=== PATIENT | female | born 1975 | race Caucasian/White ===

== ENCOUNTER 2018-01-10 00:57 | Observation (INO) | payer OTHER ==
[2018-01-09 11:55] LABS: PLATELET COUNT, AUTOMATED 360 K/uL (150-450)
[2018-01-10] VITALS (12 sets, daily range): BP systolic 106–131; BP diastolic 55–87
[~2018-01-10] VITALS: Ht 160 cm; Wt 57.2 kg
[~2018-01-10 00:57] MED LIST: AMLO2.5T74 PO; BUPR-126 PO; BUPR-472 PO; CELLC500PT PO; DICY10CA11 PO; DULO60CA56 PO; FOLI-68 PO; HYDR10CA3 PO; HYDR200T77 PO; LEVO-3 PO; MIDO5TAB20 PO; OXYC20TA99 PO; PREG75CA60 PO; PROM-110 PO; TIZA6CAP3 PO; TOPI-23 PO
[2018-01-10] MEDS ORDERED: PROPOFOL EMUL(*) 10MG/ML 20 ML 20 ML ONE ×2 (06:39→08:22)
[2018-01-10] MEDS ORDERED: DEXAMETHASONE SOD 4 MG/ML VIAL ONE (06:39)
[2018-01-10] MEDS ORDERED: SUGAMMADEX SOD 200 MG/2 ML SDV ONE (06:39)
[2018-01-10] MEDS ORDERED: ROCURONIUM BROM 10 MG/ML 10 ML ONE (06:39)
[2018-01-10] MEDS ORDERED: LIDOCAINE MPF 1% 5 ML VIAL ONE (06:39)
[2018-01-10] MEDS ORDERED: ONDANSETRON 4 MG/2 ML VIAL ONE (06:39)
[2018-01-10] MEDS ORDERED: fentaNYL CITR 250 MCG/5 ML AMP ONE (06:40)
[2018-01-10] MEDS ORDERED: PROPOFOL(*)1000 MG/100 ML VIAL 100 ML ONE (06:45)
[2018-01-10] MEDS ORDERED: KETAMINE HCL 200 MG/20 ML MDV ONE (06:47)
[2018-01-10] MEDS ORDERED: HYDROmorphone HCL 2 MG/ML SDV ONE ×2 (06:48→10:15)
[2018-01-10] MEDS ORDERED: NS 0.9% IRRIGATION 1000ML PLCT IR ONE (07:03)
[2018-01-10] MEDS ORDERED: LABETALOL HCL 100 MG/20ML VIAL ONE (07:15)
[2018-01-10] MEDS ORDERED: fentaNYL CITR 100 MCG/2 ML AMP ONE ×2 (08:58→09:37)
--- NOTE | 2018-01-10 09:21 | RADIOLOGY IMAGING REPORT ---
FACILITY: [facility] [place] PATIENT NAME: Em Prieot : 1975 MR: [id number] V: [id number] EXAM DATE: [id number] ORDERING PHYSICIAN: MERCY ERICKSON TECHNOLOGIST: Location: [facility] Patient: Em Prieto : 1975 Visit/Account:[id number] Date of Sevice: 01/10/2018 Exam: CERVICAL SPINE 1 VIEW Indication: ANTERIOR C6-7 DISCECTOMY, C6-7 FUSION, RAD Comparison: None available Findings: Two lateral radiographs are submitted from intraoperative C6-7 ACDF, images show instrument ation at C6-7 and interbody spacer on follow-up film. IMPRESSION: 1. Two lateral plain films are submitted intraoperatively for C6-7 ACDF Report Dictated By: Dilip Gan at 01/10/2018 9:15 AM Report E-Signed By: Dilip Gan at 01/10/2018 9:17 AM WSN:[email or web address]
[2018-01-10] MEDS ORDERED: ACETAMINOPHEN(*)1000 MG/100 ML 100 ML IVPB PRN (09:45)
[2018-01-10] MEDS ORDERED: BISACODYL 10 MG SUPP PR PRN (09:45)
[2018-01-10] MEDS ORDERED: MAGNESIUM HYDROXIDE* 30ML UDCP PO PRN (09:45)
[2018-01-10] MEDS ORDERED: BENZOCAINE/MENTHOL 1 EACH LOZG PO PRN (09:45)
[2018-01-10] MEDS ORDERED: LR(*) 1000 ML BAG 1,000 ML IV PRN ×2 (09:45→19:50)
[2018-01-10] MEDS ORDERED: ACETAMINOPHEN 500 MG TAB PO PRN (09:45)
[2018-01-10] MEDS ORDERED: FLUSH 10 ML SYR IVP PRN (09:45)
[2018-01-10] MEDS ORDERED: diphenhydrAMINE 25 MG CAP PO PRN (09:45)
[2018-01-10] MEDS: oxyCODONE HCL 5 MG CAP PO PRN ×2 (10:48→16:50)
--- NOTE | 2018-01-10 10:51 | Hospitalist Progress Note ---
Subjective Progress Notes Subjective Patient seen post-op. Reviewed PMHx (SLE, ITP, a-fib with bradycardia s/p pacemaker placement, chronic pain, depression) and her medications. At present she complains of surgical site pain. She denies any CP/SOB/N/V. Physical Exam Vital Signs Date Time Temp Pulse Resp B/P (MAP) Pulse Ox O2 Delivery O2 Flow Rate FiO2 01/10/18 08:54 78 14 98 01/10/18 05:53 98.8 131/86 (101) Room Air Intake and Output 01/11/18 07:00 Intake Total 1500 ml Balance 1500 ml Intake IV Total 1500 ml General Appearance: Alert, Awake Cardiovascular: Regular Rate and Rhythm (with soft systolic murmur) Respiratory: Clear to Auscultation Chest: Other (pacemaker left upper chest) Result Diagram: 01/07/18 1145 Assessment and Plan Problems: (1) SLE (systemic lupus erythematosus) Status: Chronic Assessment & Plan: She has been managed on Plaquenil and Cellcept. She was advised pre-op to continue her usual regimen and not hold her medications. (2) Pacemaker Status: Chronic Assessment & Plan: Will place on telemetry to make sure normal function. (3) Chronic ITP (idiopathic thrombocytopenia) Status: Chronic Assessment & Plan: Will check post-op lab. Pre-op platelet count was 360K. (4) Hypothyroidism Status: Chronic Assessment & Plan: Will continue L-thyroxine. (5) Depression Status: Chronic Assessment & Plan: Will continue with her same regimen. SAVANNAH ROACH MD Jan 10, 2018 10:51
[2018-01-10] MEDS: DIAZEPAM 5 MG TAB PO PRN ×2 (11:54→18:38)
[2018-01-10] MEDS: DICYCLOMINE HCL 10 MG CAP PO SCH ×3 (11:54→20:19)
[2018-01-10] MEDS ORDERED: MIDAZOLAM 2 MG/2 ML VIAL IVP PRN (12:55)
[2018-01-10] MEDS ORDERED: LIDOCAINE/SOD BICARB 8.4% SYR ID ONE (12:55)
[2018-01-10] MEDS ORDERED: FAMOTIDINE 20 MG TAB PO ONE (12:55)
[2018-01-10] MEDS ORDERED: ceFAZolin(*) 2GM/D5W 50ML 50 ML IVPB ONE (12:55)
[2018-01-10] MEDS ORDERED: NORMOSOL R SOLN(*) 1000 ML BAG 1,000 ML IV PRN (12:55)
[2018-01-10] MEDS: HYDROmorphone HCL 2 MG/ML SDV IVP PRN ×2 (13:57→19:29)
[2018-01-10] MEDS ORDERED: NS(*) 0.9% 250 ML BAG 250 ML ONE ×2 (16:50→17:03)
[2018-01-10] MEDS: ceFAZolin(*) 2GM/D5W 50ML 50 ML IVPB SCH (16:52)
[2018-01-10] MEDS: ONDANSETRON 4 MG/2 ML VIAL IVP PRN (17:06)
[2018-01-10] MEDS: MYCOPHENOLATE MOFETIL 500 MG TAB PO SCH (20:18)
[2018-01-10] MEDS: TOPIRAMATE 25 MG TAB PO SCH (20:19)
[2018-01-10] MEDS: DOCUSATE SODIUM 100 MG CAP PO SCH (20:20)
[2018-01-10] MEDS: APAP/HYDROCODONE 325/5 TAB PO PRN (21:15)
[2018-01-11] MEDS: ceFAZolin(*) 2GM/D5W 50ML 50 ML IVPB SCH ×2 (00:31→09:08)
[2018-01-11 00:33] VITALS: BP 109/67
[2018-01-11] MEDS: HYDROmorphone HCL 2 MG/ML SDV IVP PRN ×2 (00:35→07:29)
[2018-01-11] MEDS: APAP/HYDROCODONE 325/5 TAB PO PRN ×2 (00:35→05:42)
[2018-01-11] MEDS: oxyCODONE HCL 5 MG CAP PO PRN ×2 (02:52→10:06)
[2018-01-11 02:53] VITALS: BP 104/68
[2018-01-11 05:53] LABS: PLATELET COUNT, AUTOMATED 267 K/uL (150-450)
[2018-01-11] MEDS ORDERED: LEVOTHYROXINE SOD 0.1 MG TAB PO SCH (06:00)
--- NOTE | 2018-01-11 06:16 | OPERATIVE REPORT 1 ---
EVENT DATE: January 10, 2018 SURGEON: Edwin Rojas MD ANESTHESIOLOGIST: Giovani Araiza MD ANESTHESIA: General endotracheal. TECHNICAL ENGINEER: Chris Toribio PA-C PREOPERATIVE DIAGNOSIS Left C7 radiculopathy with C6-C7 spondylosis. POSTOPERATIVE DIAGNOSIS Left C7 radiculopathy with C6-C7 spondylosis. PROCEDURE PERFORMED C6-C7 anterior cervical discectomy and fusion. IV FLUIDS 1300 mL. ESTIMATED BLOOD LOSS 50 mL. IMPLANTS A 7 mm size small titanium interbody implant from [employer] and two 3.5 mm x 14 mm fixation screws also from [employer]. SPECIMENS None. DRAINS A 10 Iraqi round Alberto-Domínguez drain through the neck. COMPLICATIONS None. DISPOSITION Post anesthesia care unit. INDICATIONS FOR SURGERY Ms. Prieto is a 42-year-old female who presented to my clinic with a chief complaint of radiating left upper extremity pain, numbness and tingling. The symptoms were presents in the C7 distribution and were accompanied by weakness in the left triceps and a decreased triceps deep tendon reflex on physical examination. Secondary to the presence of a pacemaker, she could not undergo MRI , so we sent her for a cervical spine CT myelogram, which showed significant foraminal narrowing at the C6-C7 level. This was on the left. Secondary to ongoing symptoms and failure of nonsurgical care including physical therapy, Medrol Dosepak, medications and activity modification, Ms. Prieto was offered and elected to undergo C6-C7 anterior cervical discectomy and fusion. Prior to surgery, I explained in detail to the patient the possible risks of surgery. This included the risk of bleeding, infection, nerve root injury, spinal cord injury, damage to surrounding structures, swallowing difficulties with possible need for tube feeding, , blindness, sexual dysfunction, autonomic nervous system dysfunction and other unforeseen medical and surgical complications. She voiced an understanding and wished to proceed. DESCRIPTION OF PROCEDURE On the date of surgery, the patient was met in the preoperative hold area and all questions were answered. The operative site was identified and marked by myself. The patient was brought in good condition to the operating room, and after succumbing to anesthesia, was positioned in the supine position on a standard OR bed. All bony protuberances and soft tissues were well padded in the standard fashion. Care was taken to maintain appropriate perfusion pressures during anesthesia. Preoperative antibiotics were administered according to the appropriate timing schedule. At the conclusion of the procedure, the sponge and needle count were correct times two. A discussion was had preoperatively regarding neurophysiologic monitoring. The patient understands that neurophysiologic monitoring is a method by which we mitigate against spinal cord injury or peripheral nerve root injury, but that it is not an infallible method. The patient understands that at times, monitoring may cease to be informative in the absence of a correctable maneuver. In this situation, the surgeon is blind to any adverse changes in the neurologic system. Throughout the course of the procedure, there were no significant changes in neurophysiologic monitoring. A final time out was undertaken by members of the operating team to confirm correct patient, correct level and correct surgery. The patient was then prepped and draped in the standard sterile orthopedic fashion, and an anterior incision was made over the intended surgical level. Sharp dissection was carried down to the platysma, which was divided. The medial border of the sternocleidomastoid muscle was identified, and a finger was used to palpate the carotid pulse and to find the carotid sheath. Blunt dissection was taken medial to the carotid sheath and into the retropharyngeal space. A lateral radiograph was obtained to confirm correct spinal level. Self-retaining retractors were then placed after having elevated soft tissues off the anterior cervical spine, including longus colli musculature. Once the self-retaining retractor was placed, a microscope was brought into the field. The C6-C7 disk was incised using a 15 blade, and the anterior annulus was removed with a pituitary rongeur. Progressively smaller curettes were used to perform a wide discectomy at the C6-C7 level. A high speed sultana was used to then taken down the uncovertebral joints as necessary. A Cloward room service clerk was placed and distracted across the disk space. There was no change in neurophysiologic monitoring. The posterior osteophyte was taken down with a high-speed sultana and a combination of the nerve hook and small forward angled curettes were used to dissect through the posterior annulus. Multiple small loose disk fragments were removed from the left side of the disk and the foraminal nerve root exit zone. Once we encountered the posterior longitudinal ligament, this was also dissected through utilizing a combination of the nerve hook and a forward angled curette. The posterior longitudinal ligament was then removed using a combination of #1 and #2 Kerrison rongeurs. Bilateral foraminotomies were performed using the 2-0 Kerrison, and a nerve hook was then passed behind the vertebral bodies to ensure complete decompression of the spinal cord and out bilateral foramina to ensure that the foramina were widely patent. Meticulous hemostasis was obtained, and the end plates of the vertebral body above and below the disk space were prepared, making sure that all cartilaginous remnants had been stripped off the end plates. A 7 mm trial rasp was then placed in the interbody space and found to have excellent fit. We therefore chose a size small 7 mm tall interbody device, which was placed in the interbody space. The awl was then used to prepare the end plates for the fixation screws through the holes in the implant. 3.5 mm x 14 mm fixation screws were then placed, one into the C6 vertebral body, and one into the C7 vertebral body. A lateral radiograph confirmed excellent positioning of the implant. The wound was then irrigated with copious sterile saline solution and closed in layers using interrupted sutures for the platysma, inverted interrupted sutures for the subcutaneous tissue, and then a running subcuticular skin stitch. Sponge and needle counts were correct times two. A 10 Iraqi round Alberto-Domínguez drain was left deep to the platysma. POSTOPERATIVE CARE PLAN Ms. Prieto will remain in the hospital overnight. Her drain will be removed in the morning, and she will be discharged home. She will then follow up with us in two weeks' time for wound check and examination. ERVIN
[2018-01-11 07:05] VITALS: BP 114/76
[2018-01-11] MEDS ORDERED: DOCU240C84 PO (07:47)
[2018-01-11] MEDS ORDERED: LOR5/325 PO (07:49)
--- NOTE | 2018-01-11 08:42 | RADIOLOGY IMAGING REPORT ---
FACILITY: [facility] PATIENT NAME: Em Prieto : 1975 MR: [id number] V: [id number] EXAM DATE: ORDERING PHYSICIAN: MERCY ERICKSON TECHNOLOGIST: Location: [facility] [place] Patient: Em Prieto : 1975 Visit/Account:[id number] Date of Sevice: 01/11/2018 Technique: CERVICAL SPINE 2 OR 3 VIEW HISTORY: ANTERIOR C6-7 DISCECTOMY, C6-7 FUSION Comparison studies: Operative fluoroscopic images January 10, 2018 FINDINGS: There is no acute fracture. The patient is status post anterior cervical discectomy and fu ramiro at C6-C7. Overall, there is gross anatomic alignment. Noted is 2 mm anterolisthesis of C7 on T 1. The vertebral body heights are maintained. IMPRESSION: 1. ACDF at C6-C7 without evidence of hardware complication. Report Dictated By: Konrad Zarate DO at 01/11/2018 8:25 AM Report E-Signed By: Konrad Zarate DO at 01/11/2018 8:39 AM WSN:[email or web address]
[2018-01-11] MEDS ORDERED: buPROPion XL 150 MG TABCR PO SCH (09:00)
[2018-01-11] MEDS ORDERED: HYDROXYCHLOROQUINE 200 MG TAB PO SCH (09:00)
[2018-01-11] MEDS ORDERED: FOLIC ACID 1 MG TAB PO SCH (09:00)
[2018-01-11] MEDS ORDERED: PREGABALIN 25 MG CAP PO SCH (09:00)
[2018-01-11] MEDS ORDERED: DULoxetine HCL 30 MG CAPCR PO SCH (09:00)
[2018-01-11] MEDS ORDERED: amLODIPine BESYL(*) 2.5 MG TAB PO SCH (09:00)
[2018-01-11] MEDS: DICYCLOMINE HCL 10 MG CAP PO SCH (09:00)
[2018-01-11] MEDS ORDERED: MIDODRINE 2.5 MG TAB PO SCH (09:00)
[2018-01-11] MEDS: DOCUSATE SODIUM 100 MG CAP PO SCH (09:06)
[2018-01-11] MEDS: TOPIRAMATE 25 MG TAB PO SCH (09:07)
[2018-01-11] MEDS: MYCOPHENOLATE MOFETIL 500 MG TAB PO SCH (09:08)
[2018-01-11] MEDS: ONDANSETRON 4 MG/2 ML VIAL IVP PRN (09:12)
[2018-01-11] MEDS ORDERED: POTA20TA94 PO (09:20)
[2018-01-11] MEDS ORDERED: POTASSIUM CHL 20 MEQ TABCR PO ONE (09:30)
--- NOTE | 2018-01-11 09:46 | Hospitalist Progress Note ---
Subjective Progress Notes Subjective She has no complaints this morning. She states she is ready to go home. Patient Complains of: Cardiovascular: No: Chest Pain Respiratory: No: Shortness of Breath Physical Exam Vital Signs Date Time Temp Pulse Resp B/P (MAP) Pulse Ox O2 Delivery O2 Flow Rate FiO2 01/11/18 09:05 70 01/11/18 07:13 93 Room Air 01/11/18 07:05 99.1 20 114/76 (89) 01/11/18 02:53 1.0 Intake and Output 01/12/18 07:00 # Voids 1 General Appearance: Alert, Awake, No Acute Distress, Afebrile Neuro: No Gross deficits Cardiovascular: Regular Rate and Rhythm Respiratory: No Respiratory Distress, Clear to Auscultation Psych: Alert & Oriented X3, Appropriate Mood & Affect Result Diagram: 01/11/18 0534 01/11/18 0534 Assessment and Plan Problems: (1) SLE (systemic lupus erythematosus) Status: Chronic Assessment & Plan: She has been managed on Plaquenil and Cellcept. She was advised pre-op to continue her usual regimen and not hold her medications. (2) Pacemaker Status: Chronic Assessment & Plan: She was placed on telemetry during admission to make sure normal function. (3) Chronic ITP (idiopathic thrombocytopenia) Status: Chronic Assessment & Plan: Pre-op platelet count was 360K. Platelet count this morning was 267K. (4) Hypothyroidism Status: Chronic Assessment & Plan: Will continue L-thyroxine. (5) Depression Status: Chronic Assessment & Plan: Will continue with her same regimen. Exam Sepsis Risk: No Definite Risk REUBEN HARDEN January 11, 2018 09:46
== END 2018-01-11 07:38 | disposition home or self-care (01) ==
LOC: OR 00:57 → MED 10:35
PROVIDERS: ADMIT Orthopaedic Surgery; ATTEND Orthopaedic Surgery
DX: M47.22 Other spondylosis with radiculopathy, cervical region (principal)
CPT/HCPCS: 22551; 36415; 72020; 72040; 85025; 86850; 86900; 86901; 97116; 97161; G0378; J0131; J1100; J1170; J2001; J2250; J2405; J2704; J3010; J3490; J7050; 82040; 82247; 82310; 82374; 82435; 82565; 82947; 84075; 84132; 84155; 84295; 84450; 84460; 84520; C1713; J0690